=== PATIENT | male | born 1955 | race Caucasian/White ===

== ENCOUNTER 2020-09-30 09:37 | Observation (INO) ==
[2020-09-30] MEDS ORDERED: ALBUTEROL/IPRATROPIUM 3 ML NEB RESP TX STA (10:08)
[2020-09-30] MEDS ORDERED: methylPREDNISolone SOD SUC 125 MG/2 ML VIAL IV STA (10:08)
[2020-09-30] MEDS ORDERED: SODIUM CHLORIDE 0.9% 1,000 ML IV STA (10:34)
[2020-09-30 10:37] LABS: Basophils % 0.5 % (0.0-0.8); Eosinophils % 0.4 % (0.00-10.9); Hematocrit 39.9 VOL% (42.0-52.0); Hemoglobin 13.3 GM/DL (14.0-18.0); Immature Granulocytes % 0.8 %; Immature Granulocytes Absolute 0.06 #; Lymphocytes # 1.4 10*3/uL (1.4-4.0); Lymphocytes % 17.4 % (21.2-54.2); Mean Corpuscular HGB Conc 33.3 GM/DL (32-36); Mean Corpuscular Volume 92.6 FL (87-102); Mean Platelet Volume 8.7 FL (9.6-12.0); Monocytes % 9.4 % (1.7-12.7); Neutrophils % 71.5 % (38.7-73.9); Platelet Count 254 T/CUMM (130-400); Red Blood Count 4.31 MC/CUMM (3.8-5.5); White Blood Count 7.9 T/CUMM (4-12)
[2020-09-30 11:02] LABS: Albumin 3.5 G/DL (3.4-5.0); Bilirubin,Total 0.5 MG/DL (0.2-1.0); Calcium 9.1 MG/DL (8.5-10.1); Osmolality,Calculated 243.3 MOS/KG (273-304); Potassium 3.9 MMOL/L (3.5-5.1)
[2020-09-30] MEDS ORDERED: ALBUTEROL 2.5 MG/3 ML NEB RESP TX PRN (11:35)
[2020-09-30] MEDS ORDERED: ACETAMINOPHEN 325 MG TABLET PO PRN (11:35)
[2020-09-30] MEDS ORDERED: ONDANSETRON 4 MG/2 ML VIAL IV PRN (11:35)
[2020-09-30] MEDS: cefTRIAXone 1,000 MG in SODIUM CHLORIDE 0.9% 100 ML IV SCH (13:57)
[2020-09-30] MEDS: GABAPENTIN 600 MG TABLET PO SCH ×2 (15:15→20:44)
[2020-09-30] MEDS: ALBUTEROL/IPRATROPIUM 3 ML NEB RESP TX SCH ×3 (15:15→23:00)
[2020-09-30 16:00] LABS: Calcium 8.8 MG/DL (8.5-10.1); Osmolality,Calculated 251.9 MOS/KG (273-304); Potassium 3.4 MMOL/L (3.5-5.1)
[2020-09-30] MEDS ORDERED: SODIUM CHLORIDE 0.9% 1,000 ML IV SCH (19:16)
[2020-09-30] MEDS: QUEtiapine 100 MG TABLET PO SCH (20:44)
[2020-09-30] MEDS: PANTOPRAZOLE 20 MG TABLET PO SCH (20:44)
[2020-09-30] MEDS: DOCUSATE SODIUM 100 MG CAPSULE PO SCH (20:44)
[2020-09-30 23:01] LABS: Bilirubin,Urine Negative (Negative); Blood, Urine Negative (Negative); Glucose,Urine (UA) >=500 mg/dL (Negative); Hyaline Casts,Urine 1 /LPF (0-3); Ketones,Urine Negative (Negative); Nitrite,Urine Negative (Negative); Protein,Urine Negative; RBC,Urine 2 /HPF (0-4); Urine Appearance CLEAR (Clear); Urine Color Yellow (Yellow); Urine Specific Gravity 1.009 (1.001-1.035); Urine Urobilinogen < 2.0 EU/DL (0.2-1.0); WBC,Urine <1 /HPF (0-6)
[2020-10-01] MEDS: ALBUTEROL/IPRATROPIUM 3 ML NEB RESP TX SCH ×4 (01:35→14:45)
[2020-10-01 05:39] LABS: Basophils % 0.1 % (0.0-0.8); Hematocrit 34.4 VOL% (42.0-52.0); Hemoglobin 11.6 GM/DL (14.0-18.0); Immature Granulocytes % 1.7 %; Immature Granulocytes Absolute 0.15 #; Lymphocytes # 0.8 10*3/uL (1.4-4.0); Lymphocytes % 9.5 % (21.2-54.2); Mean Corpuscular HGB Conc 33.7 GM/DL (32-36); Monocytes % 5.4 % (1.7-12.7); Neutrophils % 83.3 % (38.7-73.9); Platelet Count 230 T/CUMM (130-400); Red Blood Count 3.74 MC/CUMM (3.8-5.5); Red Cell Distribution Width 14.8 % (9.3-17.3); White Blood Count 8.7 T/CUMM (4-12)
[2020-10-01 06:08] LABS: Alanine Aminotransferase 17 U/L (16-61); Albumin 2.9 G/DL (3.4-5.0); Alkaline Phosphatase 78 U/L (45-117); Aspartate Amino Transferase 11 U/L (0-37); Bilirubin,Total < 0.39 MG/DL (0.2-1.0); Blood Urea Nitrogen 23 MG/DL (7-18); Calcium 8.8 MG/DL (8.5-10.1); Carbon Dioxide 22 MMOL/L (21-32); Estimated Glom Filtration Rate 41 ML/MIN; Glucose 136 MG/DL (74-106); Osmolality,Calculated 260.2 MOS/KG (273-304); Potassium 3.4 MMOL/L (3.5-5.1); Sodium 127 MMOL/L (136-145); Total Protein 6.7 G/DL (6.4-8.3)
[2020-10-01] MEDS ORDERED: PANTOPRAZOLE 40 MG TABLET PO SCH (09:00)
[2020-10-01] MEDS ORDERED: DEXTROSE 50% 25 GM/50 ML VIAL IV PRN (09:50)
[2020-10-01] MEDS ORDERED: POTASSIUM CHLORIDE RIDER 10 MEQ in PREMIX 1 EACH IV PRN (09:50)
[2020-10-01] MEDS ORDERED: GLUCAGON 1 MG VIAL IM PRN (09:50)
[2020-10-01] MEDS: GABAPENTIN 600 MG TABLET PO SCH ×3 (09:51→20:45)
[2020-10-01] MEDS: DOCUSATE SODIUM 100 MG CAPSULE PO SCH ×2 (09:52→20:45)
[2020-10-01] MEDS: PANTOPRAZOLE 20 MG TABLET PO SCH ×2 (09:52→20:45)
[2020-10-01] MEDS: POTASSIUM CHLORIDE 20 MEQ TABLET PO PRN (13:21)
[2020-10-01] MEDS: cefTRIAXone 1,000 MG in SODIUM CHLORIDE 0.9% 100 ML IV SCH (13:21)
[2020-10-01] MEDS ORDERED: ALBUTEROL/IPRATROPIUM 3 ML NEB RESP TX PRN (14:58)
[2020-10-01] MEDS: PIPERACILLIN/TAZOBACTAM 3,375 MG in SODIUM CHLORIDE 0.9% 100 ML IV SCH ×2 (16:40→23:17)
[2020-10-01] MEDS: INSULIN REGULAR 100 UNIT/ML SUBCUT SCH ×3 (19:09→20:46)
[2020-10-01] MEDS: QUEtiapine 100 MG TABLET PO SCH (20:45)
[2020-10-02 05:28] LABS: Basophils % 0.5 % (0.0-0.8); Eosinophils % 0.5 % (0.00-10.9); Hematocrit 31.7 VOL% (42.0-52.0); Hemoglobin 10.8 GM/DL (14.0-18.0); Immature Granulocytes % 0.8 %; Immature Granulocytes Absolute 0.05 #; Lymphocytes # 1.7 10*3/uL (1.4-4.0); Lymphocytes % 25.7 % (21.2-54.2); Mean Corpuscular HGB Conc 34.1 GM/DL (32-36); Mean Corpuscular Volume 92.7 FL (87-102); Mean Platelet Volume 8.9 FL (9.6-12.0); Monocytes % 7.6 % (1.7-12.7); Neutrophils % 64.9 % (38.7-73.9); Platelet Count 203 T/CUMM (130-400); Red Blood Count 3.42 MC/CUMM (3.8-5.5); Red Cell Distribution Width 15.4 % (9.3-17.3); White Blood Count 6.4 T/CUMM (4-12)
[2020-10-02 05:58] LABS: Albumin 2.8 G/DL (3.4-5.0); Bilirubin,Total 0.6 MG/DL (0.2-1.0); Calcium 8.7 MG/DL (8.5-10.1); Osmolality,Calculated 266.4 MOS/KG (273-304); Potassium 3.3 MMOL/L (3.5-5.1); Total Protein 6.3 G/DL (6.4-8.3)
[2020-10-02] MEDS: PIPERACILLIN/TAZOBACTAM 3,375 MG in SODIUM CHLORIDE 0.9% 100 ML IV SCH (06:07)
[2020-10-02] MEDS: POTASSIUM CHLORIDE 20 MEQ TABLET PO PRN (10:10)
[2020-10-02] MEDS: DOCUSATE SODIUM 100 MG CAPSULE PO SCH (10:11)
[2020-10-02] MEDS: PANTOPRAZOLE 20 MG TABLET PO SCH (10:11)
[2020-10-02] MEDS: GABAPENTIN 600 MG TABLET PO SCH (10:11)
[2020-10-02 12:10] VITALS: BP 150/90
== END 2020-10-02 15:45 | disposition home or self-care (01) ==
LOC: EDUNIT# → EDBD → N.ED 09:37 → N.EDINP 09:37 → N.3E 18:40
PROVIDERS: ADMIT Family Medicine; ATTEND Family Medicine